=== PATIENT | female | born 1965 | race African-American/Black ===

== ENCOUNTER → 2017-01-01 | Outpatient (CLI) | payer OTHER ==
[~2017-01-01] MED LIST: ALEVE220 MG PO; ASPIRIN E.C. 8181 MG PO; CIPRO 500MG TA500 MG PO; DISALCID500 MG; EXCEDRIN TENSION HA; FLEXERIL 1010 MG/TAB PO; INDERAL 10MG10 MG PO; NORCO 325 MG-51 TAB PO; OMEPRAZOLE20 MG PO; PHENERGAN 25 TA25 MG PO; PHENERGAN25 MG RC; PRILOSEC2.5 MG/Pac PO; PRILOSEC20 MG PO; PROAIR HFA0.09 MG/AC IH; SEROQUEL50 MG PO; SERTRALINE HCL100 MG PO; SUMATRIPTAN SUC50 MG PO; ULTRAM 50MG TAB50 MG PO; VIT D 3; XANAX 0.5MG0.5 MG PO; ZOFRAN ODT8 MG PO
== END ==
LOC: MC.RAD 14:00
DX: Z12.31 Encounter for screening mammogram for malignant neoplasm of breast (principal)